=== PATIENT | female | born 1935 | race African-American/Black ===

== ENCOUNTER 2016-11-17 12:39 | Emergency (ER) | payer MEDICARE ==
[~2016-11-17] VITALS: Ht 157.5 cm; Wt 83.9 kg
--- NOTE | 2016-11-17 16:03 | PHYS DOC ---
Past Medical History Past Medical History: High Cholesterol, Other Additional Past Medical Histor: STOMACH PROBLEM Past Surgical History: Appendectomy, Cholecystectomy, Hysterectomy, Other Additional Past Surgical Histo: ORIF WRIST Alcohol Use: None Drug Use: None Adult General Chief Complaint Chief Complaint: BACK PAIN - NO INJURY [facility] Patient is a 81 year old female who presents with bilateral upper back pain that is achy and constant over the past 3 days. This is been intermittent over the past month since she had a "cold". She denies dyspnea, lightheadedness, palpitations, diaphoresis, exertional symptoms, orthopnea, leg pain or swelling , hemoptysis, fever or chills, nausea or vomiting. She has been taking Advil that helps with her pain. Review of Systems Review of Systems Constitutional: Denies fever or chills [] Eyes: Denies change in visual acuity, redness, or eye pain [] HENT: Denies nasal congestion or sore throat [] Respiratory: Denies cough or shortness of breath [] Cardiovascular: No additional information not addressed in HPI [] GI: Denies abdominal pain, nausea, vomiting, bloody stools or diarrhea [] : Denies dysuria or hematuria [] Musculoskeletal: Denies joint pain [] Integument: Denies rash or skin lesions [] Neurologic: Denies headache, focal weakness or sensory changes [] Endocrine: Denies polyuria or polydipsia [] Allergies Allergies Allergies Coded Allergies Type Severity Reaction Last Updated Verified Penicillins Allergy Intermediate ITCH 11/17/16 Yes Physical Exam Physical Exam Constitutional: Well developed, well nourished, no acute distress, non-toxic appearance. [] HENT: Normocephalic, atraumatic, bilateral external ears normal, oropharynx moist, nose normal. [] Eyes: PERRLA, EOMI. [] Neck: Normal range of motion, supple. [] Cardiovascular:Heart rate regular rhythm [] Lungs & Thorax: Bilateral breath sounds clear to auscultation [] Abdomen: Bowel sounds normal, soft, no tenderness. [] Skin: Warm, dry, no erythema, no rash. [] Back: No midline spinal tenderness, no CVA tenderness. Has mild tenderness along the thoracic paraspinal muscles without visual or palpable abnormality [] Extremities: No tenderness, ROM intact, no edema. [] Neurologic: Alert and oriented X 3, normal motor function, normal sensory function, no focal deficits noted. [] Psychologic: Affect normal, judgement normal, mood normal. [] Current Patient Data Vital Signs Vital Signs Date Time Temp Pulse Resp B/P Pulse Ox O2 Delivery O2 Flow Rate FiO2 11/17/16 14:27 97.9 71 16 153/88 94 Room Air 97.9 Lab Values Laboratory Tests Test 11/17/16 15:55 White Blood Count 5.2x10^3/uL (4.0-11.0) Red Blood Count 4.02x10^6/uL (3.50-5.40) Hemoglobin 12.2g/dL (12.0-15.5) Hematocrit 37.2% (36.0-47.0) Mean Corpuscular Volume 93fL (79-100) Mean Corpuscular Hemoglobin 31pg (25-35) Mean Corpuscular Hemoglobin Concent 33g/dL (31-37) Red Cell Distribution Width 13.4% (11.5-14.5) Platelet Count 284x10^3/uL (140-400) Neutrophils (%) (Auto) 55% (31-73) Lymphocytes (%) (Auto) 35% (24-48) Monocytes (%) (Auto) 6% (0-9) Eosinophils (%) (Auto) 4% (0-3) H Basophils (%) (Auto) 0% (0-3) Neutrophils # (Auto) 2.8x10^3uL (1.8-7.7) Lymphocytes # (Auto) 1.8x10^3/uL (1.0-4.8) Monocytes # (Auto) 0.3x10^3/uL (0.0-1.1) Eosinophils # (Auto) 0.2x10^3/uL (0.0-0.7) Basophils # (Auto) 0.0x10^3/uL (0.0-0.2) Sodium Level 144mmol/L (136-145) Potassium Level 4.3mmol/L (3.5-5.1) Chloride Level 107mmol/L (98-107) Carbon Dioxide Level 31mmol/L (21-32) Anion Gap 6 (6-14) Blood Urea Nitrogen 7mg/dL (7-20) Creatinine 0.6mg/dL (0.6-1.0) Estimated GFR (Cockcroft-Gault) 116.4 Glucose Level 90mg/dL (70-99) Calcium Level 9.4mg/dL (8.5-10.1) Troponin I Quantitative < 0.017ng/mL (0.000-0.055) Laboratory Tests 11/17/16 15:55 Laboratory Tests 11/17/16 15:55 EKG EKG EKG as interpreted by me as normal sinus rhythm, rate 75, no ST-T changes, normal intervals, no ectopy Radiology/Procedures Radiology/Procedures Chest xray as interpreted by me with no acute cardiopulmonary disease process Course & Med Decision Making Course & Med Decision Making Pertinent Labs and Imaging studies reviewed. (See chart for details) Workup is unremarkable here. She is feeling better after medications and would like to go home. She is ambulatory in the emergency department with a steady gait. Return precautions given. She understands and agrees with plan. Dragon Disclaimer Dragon Disclaimer This electronic medical record was generated, in whole or in part, using a voice recognition dictation system. Departure Departure Impression: Primary Impression: Bilateral thoracic back pain Disposition: 01 HOME, SELF-CARE Condition: STABLE Referrals: JUNG GONZALES MD (PCP) Patient Instructions: Back Pain, Adult, [place] Additional Instructions: Take Tylenol or ibuprofen as needed for pain. Follow-up with your primary care doctor. Return for any concerns. Problem Qualifiers Primary Impression: Bilateral thoracic back pain Chronicity: acute Qualified Code: M54.6 - Pain in thoracic spine Julissa ESPANA MD Nov 17, 2016 16:03
[2016-11-17 16:10] LABS: BASO % 0 % (0-3); EOS % 4 % (0-3); HEMATOCRIT 37.2 % (36.0-47.0); HEMOGLOBIN 12.2 g/dL (12.0-15.5); LYMPH # 1.8 x10^3/uL (1.0-4.8); LYMPH % 35 % (24-48); MEAN CORPUSCULAR HEMOGLOBIN 31 pg (25-35); MEAN CORPUSCULAR HGB CONC 33 g/dL (31-37); MEAN CORPUSCULAR VOLUME 93 fL (79-100); MONO % 6 % (0-9); NEUT % 55 % (31-73); PLATELET COUNT 284 x10^3/uL (140-400); RED BLOOD COUNT 4.02 x10^6/uL (3.50-5.40); RED CELL DISTRIBUTION WIDTH 13.4 % (11.5-14.5); WHITE BLOOD COUNT 5.2 x10^3/uL (4.0-11.0)
[2016-11-17 16:25] LABS: CALCIUM 9.4 mg/dL (8.5-10.1); CREATININE 0.6 mg/dL (0.6-1.0); GFR 116.4; POTASSIUM 4.3 mmol/L (3.5-5.1)
--- NOTE | 2016-11-17 16:31 | RAD ---
Indication upper back pain for 3 days. PA and lateral views the chest were obtained. No prior imaging of the chest is available. Heart size is normal. The thoracic aorta is slightly tortuous. An acute finding in the chest is not seen. A focal infiltrate significant pleural fluid collection or pneumothorax is not seen. The visualized bony structures appear grossly intact. IMPRESSION: No acute or focal process seen in the chest
[2016-11-17 17:03] VITALS: BP 149/84
--- NOTE | 2016-11-18 08:44 | EKG ---
[facility] [address] [place] [address] Test Date: 2016-11-17 Test Time: 15:46:44 Pat Name: BONNIE BETTS Department: Room: Gender: F [employer]: : 1935 Requested By: Julissa ESPANA Order Number: [id number] Reading MD: Ayah Yu Measurements Intervals [place] Rate: 75 P: 49 OR: 180 QRS: 3 QRSD: 86 T: -20 QT: 380 QTc: 427 Interpretive Statements SINUS RHYTHM NORMAL ECG RI6.01 Unconfirmed report No previous ECG available for comparison Electronically Signed On 11-19-2016 20:52:28 [employer] by Ayah Yu
== END 2016-11-17 17:04 | disposition home or self-care (01) ==
LOC: ER 12:39
DX: M54.6 Pain in thoracic spine (principal); E78.00 Pure hypercholesterolemia, unspecified; Z88.0 Allergy status to penicillin
CPT/HCPCS: 36415; 71020; 80048; 84484; 85027; 93005; 99285-25